=== PATIENT | male | born 1980 | race Caucasian/White ===

== ENCOUNTER 2016-11-24 17:54 | Emergency (ER) | payer BC ==
[~2016-11-24] VITALS: Ht 167.6 cm; Wt 90.7 kg
--- NOTE | ~2016-11-24 | EKG ---
PATIENT: BERENICE WASHBURN UNIT #: [id number] Ventricular Rate: 61 BPM Atrial Rate: 61 BPM P-R Interval: 168 ms QRS Duration: 78 ms Q-T Interval: 378 ms QTC Calculation(Bezet): 380 ms P [place]: 29 degrees Calculated R [place]: 19 degrees Calculated T [place]: 20 degrees Diagnosis Line: Normal sinus rhythm Diagnosis Line: Normal ECG Diagnosis Line: When compared with ECG of 04-APR-2010 21:11, Diagnosis Line: Questionable change in QRS axis Diagnosis Line: Confirmed by KELLY DUNCAN MD ([id number]) on Diagnosis Line: 11/25/2016 8:52:38 PM INTERPRETING MD: PERLA RANGEL
--- NOTE | ~2016-11-24 | CR72 ---
[facility] A Service of [facility] & [facility] RADIOLOGY TEXT RESULTS PATIENT: BERENICE WASHBURN LOCATION: SED : 84 UNIT #: [id number] AGE: [address]: Raymundo Suazo MD SEX: M ORDER DR: [id number] [address] [address] [id number] E MR#: [id number] Acc #: [id number] NAME: BERENICE WASHBURN : 1980 SEX: M STUDY DATE/TIME: 11/24/2016 18:52 UNIT: SED ROOM: STUDY DESCRIPTION: CR Chest Single View Portable Attending Physician: Raymundo Suazo M.D. Ordering Physician: Rhonda Sahu M.D. Primary Care Physician: Primary Care Physician No MEDICAL IMAGING REPORT This report is preliminary unless electronic signature is present. EXAM Chest portable, 11/24/2016 18:52 hours HISTORY 36-year-old man complaining of 1-week history of left-sided chest pain. COMPARISON 04/04/2010 FINDINGS Portable upright chest demonstrates low lung volumes. The cardiac, mediastinal and hilar contours are normal. The lungs are clear and there are no effusions. IMPRESSION Low lung volume film with no acute cardiopulmonary findings. Dictated by... Marianne Denny M.D. THIS IS AN ELECTRONICALLY VERIFIED REPORT Marianne Denny M.D. at 11/25/2016 9:08 AM [place] TD: 11/25/2016 08:32 JOB #: [id number] MEDICAL IMAGING REPORT Page 1 of 1
[~2016-11-24 17:54] MED LIST: ACNE MED; FLEXERIL10 MG PO; NAMENDA10 MG; PREDNISONE PO; PREVACID PO
[2016-11-24 18:37] LABS: BASOPHIL# 0.1 X10e3 (0-0.3); BASOPHIL% 0.8 % (0-2.5); EOSINOPHIL# 0.4 X10e3 (0-0.7); EOSINOPHIL% 4.1 % (0.0-7.0); HEMATOCRIT 45.7 % (38.0-50.0); HEMOGLOBIN 15.9 gm/dL (13.0-16.0); LYMPHOCYTE% 28.7 % (17.0-45.0); MEAN CELL VOLUME 91.8 FL (83-96); MEAN CORPUSCULAR HEMOGLOBIN 31.9 PG (28-34); MEAN CORPUSCULAR HGB CONC 34.7 g/dL (30-36); MEAN PLATELET VOLUME 8.3 FL (6.5-11.5); MONOCYTE# 0.7 X10e3 (0-1.0); MONOCYTE% 6.7 % (3.0-12.0); NEUTROPHIL# 6.3 X10e3 (1.5-7.1); NEUTROPHIL% 59.7 % (40-75); PLATELET COUNT 329 X10e3 (140-420); RED BLOOD COUNT 4.98 X10e (3.90-5.60); WHITE BLOOD COUNT 10.5 X10e3 (4.0-10.5)
[2016-11-24 18:47] LABS: DIFF IND NO
[2016-11-24 18:49] LABS: PROTHROMBIN TIME (PATIENT) 11.7 SECONDS (9.5-12.4)
[2016-11-24 18:56] LABS: PARTIAL THROMBOPLASTIN TIME 32.2 SECONDS (25.6-38.1)
[2016-11-24 18:57] LABS: ALBUMIN SERUM 4.3 g/dL (3.5-5.0); BILIRUBIN, DIRECT 0.1 mg/dL (0.0-0.2); BILIRUBIN,INDIRECT 0.3 mg/dL (0.0-0.9); BILIRUBIN,TOTAL 0.4 mg/dL (0.2-2.0); CALCIUM SERUM 8.9 mg/dL (8.4-10.2); GLOM FILT RATE Estimated 97.8 mL/min (>60); POTASSIUM 3.9 mmol/L (3.5-5.1); PROTEIN TOTAL SERUM 7.4 g/dL (6.0-8.3)
[2016-11-25 14:53] LABS: POC - CKMB <1.0 ng/mL (0.0-7.9); POC - TROPONIN <0.05 ng/mL (<=0.05)
[2016-11-25 15:01] LABS: POC - CKMB <1.0 ng/mL (0.0-7.9); POC - TROPONIN <0.05 ng/mL (<=0.05)
== END 2016-11-24 21:03 | disposition home or self-care (01) ==
LOC: SED 17:54
PROVIDERS: Emergency Medicine; Student in an Organized Health Care Education/Training Program
DX: R07.89 Other chest pain (principal)
CPT/HCPCS: 36415; 71010; 80048; 80076; 82553; 83880; 84484; 85025; 85610; 85730; 93005; 99285